=== PATIENT | male | born 1940 | race Caucasian/White ===

== ENCOUNTER 2018-02-11 10:36 | Outpatient (CLI) | payer MEDICARE, OTHER | END 2018-02-11 10:37 | disposition home or self-care (01) | LOC: LAB 10:36 | PROVIDERS: ATTEND Physical Medicine & Rehabilitation | DX: G62.9 Polyneuropathy, unspecified (principal) | CPT/HCPCS: 36415; 81599; 82175 ==

== ENCOUNTER 2019-09-22 09:14 | Outpatient (CLI) | payer MEDICARE, OTHER | END 2019-09-22 09:15 | disposition home or self-care (01) | LOC: RT 09:14 | PROVIDERS: ATTEND Surgery | DX: Z01.810 Encounter for preprocedural cardiovascular examination (principal); K40.90 Unilateral inguinal hernia, without obstruction or gangrene, not specified as recurrent | CPT/HCPCS: 93005 ==

== ENCOUNTER 2019-10-06 08:07 | Day surgery (SDC) | payer MEDICARE, OTHER ==
[~2019-10-06 08:07] MED LIST: BUPIVACAINE 0.5% PF 30 ML VIAL ONE; LIDOCAINE MPF 1%-EPI 1:200000 30 ML VIAL ONE; ceFAZolin 1 GM VIAL ONE
[2019-10-06] MEDS ORDERED: LACTATED RINGERS 1,000 ML IV ONE ×2 (08:18→11:20)
[2019-10-06] MEDS ORDERED: CEFAZOLIN SODIUM IN 0.9 % NACL 2 GM/100 ML BAG IV ONE (08:26)
--- NOTE | 2019-10-06 09:01 | ANESTHESIA ---
Pre-Anesthesia VS, & Labs - Diagnosis right inguinal hernia - Procedure right inguinal hernia repair Vital Signs: Temp Pulse Resp BP Pulse Ox 36.8 C 48 L 16 156/78 H 99 10/06/19 08:19 10/06/19 08:19 10/06/19 08:19 10/06/19 08:19 10/06/19 08:19 Height 5 ft 10 in Weight (kg) 69.8 kg - Lab Results Current Lab Results: Laboratory Tests 10/06/19 08:35: POC Whole Bld Glucose 125 H Home Medications and Allergies Home Medications: Ambulatory Orders Latanoprost 1 drops EACHEYE QPM 09/22/19 Losartan Potassium 25 mg PO DAILY 09/22/19 Timolol Maleate [Timoptic] 1 drops EACHEYE BID 09/22/19 metFORMIN [Glucophage] 250 mg PO QPM 09/22/19 metFORMIN [Glucophage] 500 mg PO DAILY 09/22/19 Aspirin [Aspir 81] 81 mg PO DAILY 07/18/13 Carvedilol [Coreg] 6.25 mg PO DAILY 07/18/13 Latanoprost 1 drops EACHEYE QPM 09/22/19 Losartan Potassium 25 mg PO DAILY 09/22/19 Timolol Maleate [Timoptic] 1 drops EACHEYE BID 09/22/19 metFORMIN [Glucophage] 250 mg PO QPM 09/22/19 metFORMIN [Glucophage] 500 mg PO DAILY 09/22/19 Allergies/Adverse Reactions: Allergies Allergy/AdvReac Type Severity Reaction Status Date / Time lisinopril Allergy Severe angioedema Verified 07/18/13 10:48 Anes History & Medical History - Anesthetic History Anesthesia Complications: reports: No previous complications Family history of Anesthesia Complications: Denies Family history of Malignant Hyperthermia: Denies - Medical History Cardiovascular: reports: Hypertension, High cholesterol, [place] ([place] in 2009 two stents. Denies any cardiac problems since two stents placed in 2008.) Pulmonary: reports: None Gastrointestinal: reports: None, GERD Urinary: reports: Benign prostate hypertrophy Neuro: reports: None Musculoskeletal: reports: None Endocrine/Autoimmune: reports: Type 2 diabetes Skin: reports: None Smoking Status: Never smoker Psychosocial: reports: No issues indicated, Other (daily wine " two glasses") - Surgical History General: Cholecystectomy, Colonoscopy Eyes Ears Nose Throat (EENT): Tonsil/Adenoidectomy Cardiothoracic: Coronary stent Orthopedic: Knee replacement, Arthroscopic surgery Results - EKG Results EKG Comparison: Reviewed EKG (old [place]) Exam General: Alert, Oriented x3, Cooperative, No acute distress Mouth Openin Fingerbreadth Neck Mobility: Normal Mallampati classification: II Thyromental Distance: 4-6 cm Respiratory: Lungs clear, Normal breath sounds, No respiratory distress, No accessory muscle use Cardiovascular: Regular rate, Normal S1, Normal S2, No murmurs Abdomen: Normal bowel sounds, Soft, No tenderness, No hepatospenomegaly, No masses Extremities: No clubbing, No cyanosis, No edema, Normal pulses, No tenderness/swelling Neurological: Normal gait, Normal speech, Strength at 5/5 X4 ext, Normal tone, Sensation intact, Cranial nerves 3-12 NL, Reflexes 2+ Mental/Cognitive Status: Alert/Oriented X3, Normal for patient Cognitive Status: Within normal limits Plan Anesthesia Type: General Consent for Procedure(s) Verified and Reviewed: Yes Code Status: Attempt Resuscitation ASA classification: 3-Severe systemic disease Is this case an emergency?: No
[2019-10-06] MEDS ORDERED: fentaNYL 100 MCG/2 ML VIAL IVP ONE (10:00)
[2019-10-06] MEDS ORDERED: PROPOFOL 200 MG/20 ML VIAL IVP ONE (10:00)
[2019-10-06] MEDS ORDERED: ePHEDrine 50 MG/ML VIAL IVP ONE (10:00)
[2019-10-06] MEDS ORDERED: LIDOCAINE-MPF 2% 5 ML VIAL IM ONE (10:00)
[2019-10-06] MEDS ORDERED: MIDAZOLAM 2 MG/2 ML VIAL IVP ONE (10:00)
[2019-10-06] MEDS ORDERED: LIDOCAINE 1%-EPI 1:100000 30 ML MDV SUBQ ONE (10:26)
[2019-10-06] MEDS ORDERED: ceFAZolin 1 GM VIAL IR ONE (10:26)
[2019-10-06] MEDS ORDERED: BUPIVACAINE 0.5% PF 30 ML VIAL SUBQ ONE (10:26)
[2019-10-06] MEDS ORDERED: ONDANSETRON 4 MG/2 ML VIAL IVP PRN (10:59)
[2019-10-06] MEDS ORDERED: IBUPROFEN 600 MG TABLET PO PRN (10:59)
[2019-10-06] MEDS ORDERED: ACETAMINOPHEN 325 MG TABLET PO PRN (10:59)
[2019-10-06] MEDS ORDERED: oxyCODONE 5 MG TABLET PO PRN (10:59)
--- NOTE | 2019-10-06 10:59 | OPERATIVE REPORT ---
Operative Report - General Procedure Date: 10/06/19 Planned Procedure: Right Inguinal Hernia Repair Pre-Op Diagnosis: Right Inguinal Hernia Procedure Performed: Right Inguinal Hernia Repair Post Op Diagnosis: Right Inguinal Hernia - Procedure Note Primary Surgeon: Gracie Anesthesia Provider: ANMOL Ashby Anesthesia Technique: General LMA, Local, Regional block Estimated Blood Loss (mL): 10 Findings: Moderate indirect inguinal hernia Complications: None apparent - Other Other Information/Narrative: After obtaining informed consent, the patient is brought to the operating room and placed in the supine position on the operating table. Following successful induction of general anesthesia, appropriate padding of all bony prominences, and placement of appropriate monitors, the abdomen and right groin were prepped and draped in the standard surgical fashion. A timeout was held per scope protocol all elements of the surgical safety checklist were observed before, during, and following the procedure. We began the procedure by infiltrating a mixture of local anesthetics medial to the anterior superior iliac spine on the right to create an ileal inguinal nerve block. We then selected a site for an incision superior and just lateral to the pubic tubercle on the right side. This was anesthetized with local anesthetic and incision was created here. It was carried down through the skin and subc utaneous tissue, through Michelle's fascia, to reveal the external oblique aponeurosis. Additional local anesthetic was applied in the aponeurosis. It was opened in the direction of its fibers revealing the spermatic cord and the hernia sac. The hernia sac consisted of a knuckle of peritoneum extending to the pubic tubercle. After mixture of sharp and blunt dissection, the entire sac was freed from the spermatic cord without any obvious damage to the cord. The sac was then placed back in the preperitoneal space. We elected to repair the defect using a large portion of Prolene hernia system mesh. This was soaked in Ancef containing solution and deployed into the defect. The posterior leaflet was flattened and straightened in the preperitoneal space. The anterior leaflet was then divided medially to allow for the spermatic cord. The opening was then closed with a single loose Prolene suture. The lateral portion of the anterior leaflet was then tucked under the external oblique aponeurosis. The medial portion of the anterior leaflet was sewn to Alex's ligament with a single Vicryl suture. The spermatic cord was seen to lie easily on the surface of the anterior leaflet without any constriction. The external oblique aponeurosis fibers were then reapproximated using Vicryl suture. Michelle's fascia was closed with Vicryl Monocryl was placed in the skin. All sponge, needle, and instrument counts were correct at the conclusion of the case. The patient was allowed to wake from anesthesia without significant difficulty and taken to the postanesthesia care unit in good condition.
[2019-10-06 12:21] VITALS: BP 126/73
== END 2019-10-06 08:08 | disposition home or self-care (01) ==
LOC: SDS 08:07
PROVIDERS: ATTEND Surgery
PROC: 0YU50JZ Supplement Right Inguinal Region with Synthetic Substitute, Open Approach (ICD-10-PCS; principal; 2019-10-06 09:45)
DX: K40.90 Unilateral inguinal hernia, without obstruction or gangrene, not specified as recurrent (principal); E11.9 Type 2 diabetes mellitus without complications; I10 Essential (primary) hypertension; Z95.5 Presence of coronary angioplasty implant and graft; R13.10 Dysphagia, unspecified; I25.10 Atherosclerotic heart disease of native coronary artery without angina pectoris; I25.2 Old myocardial infarction
CPT/HCPCS: 49505; A9270; C1781; J0690; J7120

== ENCOUNTER 2019-10-14 07:25 | Day surgery (SDC) | payer MEDICARE, OTHER ==
[~2019-10-14 07:25] MED LIST changes: -BUPIVACAINE 0.5% PF 30 ML VIAL ONE; +LIDO GARGLE 30 ML BOTTLE ONE; -LIDOCAINE MPF 1%-EPI 1:200000 30 ML VIAL ONE; -ceFAZolin 1 GM VIAL ONE
[2019-10-14] MEDS ORDERED: LACTATED RINGERS 1,000 ML IV ONE (07:30)
[2019-10-14] MEDS ORDERED: LIDO GARGLE 30 ML BOTTLE PO ONE (08:31)
[2019-10-14] MEDS ORDERED: MIDAZOLAM 2 MG/2 ML VIAL IVP ONE (08:35)
[2019-10-14] MEDS ORDERED: fentaNYL 250 MCG/5 ML VIAL IVP ONE (08:35)
[2019-10-14] MEDS ORDERED: PANTOPRAZOLE 40 MG TABLET PO ONE (10:00)
[2019-10-14 10:04] VITALS: BP 121/70
== END 2019-10-14 07:26 | disposition home or self-care (01) ==
LOC: SDS 07:25
PROVIDERS: ATTEND Surgery
PROC: 0DB68ZX Excision of Stomach, Via Natural or Artificial Opening Endoscopic, Diagnostic (ICD-10-PCS; 2019-10-14)
PROC: 0DB38ZX Excision of Lower Esophagus, Via Natural or Artificial Opening Endoscopic, Diagnostic (ICD-10-PCS; 2019-10-14)
PROC: 0DB98ZX Excision of Duodenum, Via Natural or Artificial Opening Endoscopic, Diagnostic (ICD-10-PCS; principal; 2019-10-14 08:30)
DX: R13.10 Dysphagia, unspecified (principal); K29.50 Unspecified chronic gastritis without bleeding; K20.9 Esophagitis, unspecified; E11.9 Type 2 diabetes mellitus without complications; I10 Essential (primary) hypertension; I25.10 Atherosclerotic heart disease of native coronary artery without angina pectoris; I25.2 Old myocardial infarction; Z95.5 Presence of coronary angioplasty implant and graft
CPT/HCPCS: 43239; A9270; J3010; J7120

== ENCOUNTER 2020-11-01 20:09 | Outpatient (CLI) | payer MEDICARE, OTHER | END 2020-11-01 20:10 | disposition home or self-care (01) | LOC: COV 20:09 | PROVIDERS: ATTEND Family Medicine | DX: R09.81 Nasal congestion (principal); J34.89 Other specified disorders of nose and nasal sinuses; Z20.828 Contact with and (suspected) exposure to other viral communicable diseases ==

== ENCOUNTER 2021-05-05 07:00 | Outpatient (CLI) | payer MEDICARE, OTHER | END 2021-05-05 23:59 | disposition home or self-care (01) | LOC: COV 07:00 | PROVIDERS: ATTEND Surgery | DX: Z01.812 Encounter for preprocedural laboratory examination (principal); K21.9 Gastro-esophageal reflux disease without esophagitis; R13.10 Dysphagia, unspecified; E11.9 Type 2 diabetes mellitus without complications; Z20.822 Contact with and (suspected) exposure to COVID-19 ==

== ENCOUNTER 2021-05-09 09:45 | Day surgery (SDC) | payer MEDICARE, OTHER ==
[2021-05-09] MEDS ORDERED: LACTATED RINGERS 1,000 ML IV ONE ×2 (10:13→11:36)
[2021-05-09] MEDS ORDERED: LIDO GARGLE 30 ML BOTTLE ONE (11:07)
[2021-05-09] MEDS ORDERED: MIDAZOLAM 2 MG/2 ML VIAL ONE (11:08)
[2021-05-09] MEDS ORDERED: fentaNYL 100 MCG/2 ML VIAL ONE (11:08)
[2021-05-09] MEDS ORDERED: BENZOCAINE/TETRACAINE/BUTAMBEN 20 GM TOP ONE (11:25)
[2021-05-09] MEDS ORDERED: LIDO GARGLE 30 ML BOTTLE TOP ONE (11:25)
[2021-05-09 11:58] VITALS: BP 119/64
== END 2021-05-09 09:46 | disposition home or self-care (01) ==
LOC: SDS 09:45
PROVIDERS: ATTEND Surgery
PROC: 0DB78ZX Excision of Stomach, Pylorus, Via Natural or Artificial Opening Endoscopic, Diagnostic (ICD-10-PCS; 2021-05-09)
PROC: 0DB58ZX Excision of Esophagus, Via Natural or Artificial Opening Endoscopic, Diagnostic (ICD-10-PCS; 2021-05-09)
PROC: 0DB98ZX Excision of Duodenum, Via Natural or Artificial Opening Endoscopic, Diagnostic (ICD-10-PCS; principal; 2021-05-09 10:45)
DX: K22.70 Barrett's esophagus without dysplasia (principal); K21.9 Gastro-esophageal reflux disease without esophagitis; K29.70 Gastritis, unspecified, without bleeding; K22.2 Esophageal obstruction; R13.10 Dysphagia, unspecified
CPT/HCPCS: 43239; A9270; J7120

== ENCOUNTER 2022-10-24 11:24 | Outpatient (CLI) | payer MEDICARE, OTHER ==
--- NOTE | 2022-10-24 14:51 | XRAY Report ---
PROCEDURE: Hand 2 View LT INDICATIONS: LEFT THUMB PAIN TECHNIQUE: 2 views of the hand(s) acquired. COMPARISON: None. FINDINGS: Bones: There is a fracture at the base of the first metatarsus of uncertain chronicity. Suspect old fracture of the fifth proximal and middle phalanges. Moderate degenerative joint disease at the trisc aphe joint and at the first carpometacarpal joint. Mild degenerative joint disease at the first metac arpal phalangeal joint and multiple interphalangeal joints. Soft tissues: No suspicious soft tissue calcifications. IMPRESSION: 1. First metatarsal base fracture of uncertain chronicity. 2. Moderate degenerative joint disease. Reviewed by: Alexander Grande MD on 10/24/2022 2:50 PM PST Approved by: Alexander Grande MD on 10/24/2022 2:50 PM PST Station ID: [id number]
== END 2022-10-24 11:25 | disposition home or self-care (01) ==
LOC: DI 11:24
PROVIDERS: ATTEND Student in an Organized Health Care Education/Training Program
DX: S92.312A Displaced fracture of first metatarsal bone, left foot, initial encounter for closed fracture (principal); M18.12 Unilateral primary osteoarthritis of first carpometacarpal joint, left hand

== ENCOUNTER 2023-06-26 09:13 | Outpatient (CLI) | payer MEDICARE, OTHER ==
--- NOTE | 2023-06-26 17:13 | XRAY Report ---
PROCEDURE: Shoulder 3 View RT INDICATIONS: RIGHT SHOULDER PAIN TECHNIQUE: 3 views of the shoulder were acquired. COMPARISON: None. FINDINGS: Bones: No fractures or dislocations. No suspicious bony lesions. Visualized ribs appear intact. Moderate AC joint hypertrophy. Mild glenohumeral joint degenerative changes. Soft tissues: No suspicious soft tissue calcifications. IMPRESSION: No acute bony abnormality. If pain persists with conservative management, consider repeat radiographs in 10-14 days or cross-sectional imaging. Reviewed by: Karlos Zepeda MD on 06/26/2023 5:12 PM PDT Approved by: Karlos Zepeda MD on 06/26/2023 5:12 PM PDT Station ID: [id number]
== END 2023-06-26 09:14 | disposition home or self-care (01) ==
LOC: DI 09:13
PROVIDERS: ATTEND Physician Assistant
DX: M19.011 Primary osteoarthritis, right shoulder (principal)